=== PATIENT | female | born 2000 | race Caucasian/White ===

== ENCOUNTER 2024-08-21 18:35 | Outpatient (REF) | payer OTHER, SELFPAY | END 2024-08-21 18:36 | disposition home or self-care (01) | LOC: LBN 18:35 | PROVIDERS: Visit Provider Physician Assistant | DX: T19.2XXA Foreign body in vulva and vagina, initial encounter (principal); W44.8XXA Other foreign body entering into or through a natural orifice, initial encounter | CPT/HCPCS: 87070; 87205; 87480; 87510; 87660 ==